=== PATIENT | male | born 1990 | race African-American/Black ===

== ENCOUNTER 2021-11-07 22:11 | Emergency (ER) | payer SELFPAY ==
[2021-11-07] MEDS ORDERED: AMOXicillin 250 MG CAP ONE (23:47)
== END 2021-11-08 | disposition home or self-care (01) ==
LOC: BURERS 22:11
DX: K02.9 Dental caries, unspecified (principal); J02.9 Acute pharyngitis, unspecified
CPT/HCPCS: 99282